=== PATIENT | female | born 2000 | race Caucasian/White ===

== ENCOUNTER 2021-01-25 22:24 | Inpatient (IN) ==
[2021-01-25 22:51] LABS: INR 1.3; Prothrombin Time 15.1 Seconds (9.4-12.1)
[2021-01-25 22:54] LABS: Activated Partial Thrombo Time 27.4 Seconds (26.0-36.0)
[2021-01-25 22:58] LABS: Hematocrit 41.4 % (35.3-44.9); Hemoglobin 14.2 g/dL (11.5-15.4); Lymphocytes # 0.7 K/mcL (0.6-4.6); Mean Corpuscular HGB Conc 34.3 g/dL (31.6-35.5); Mean Corpuscular Hemoglobin 30.5 pg (28.0-33.3); Mean Platelet Volume 10.7 fL (9.4-12.4); Platelet Count 129 K/mcL (140-400); Red Blood Count 4.65 M/mcL (3.82-4.97); Red Cell Distribution Width 12.8 % (11.5-14.5)
[2021-01-25 23:14] LABS: Alanine Aminotransferase 22 Units/L (7-52); Albumin 3.6 g/dL (3.5-5.7); Albumin/Globulin Ratio 1.1 (1.1-2.2); Alkaline Phosphatase 42 Units/L (34-104); Aspartate Amino Transferase 48 Units/L (13-39); BUN/Creatinine Ratio 14 (6-26); Bilirubin,Direct 0.2 mg/dL (0.0-0.2); Bilirubin,Indirect 0.3 mg/dL (0.0-1.0); Bilirubin,Total 0.5 mg/dL (0.3-1.0); Blood Urea Nitrogen 12 mg/dL (6-20); Calcium 8.4 mg/dL (8.6-10.3); Carbon Dioxide 23 mEq/L (23-29); Chloride 106 mEq/L (98-107); Globulin 3.3 g/dL (2.4-3.5); Glucose 99 mg/dL (70-105); Lipase 8 Units/L (11-82); Osmolality,Calculated 288 (280-300); Phosphorous 2.8 mg/dL (2.7-4.5); Potassium 3.6 mEq/L (3.5-5.1); Sodium 139 mEq/L (136-145); Total Protein 6.9 g/dL (6.4-8.9); eGFR For African Americans > 60 (> 60); eGFR For Non-African Americans > 60 (> 60)
[2021-01-25 23:15] LABS: Troponin I < 0.03 ng/mL (< 0.04)
[2021-01-25 23:16] LABS: Anisocytosis 2+ (Not Present); Monocytes # 0.1 K/mcL (0.0-1.3); Neutrophils # 4.2 K/mcL (1.6-8.9); Reactive Lymphocytes Present (Not Present)
[2021-01-25 23:17] LABS: Platelet Estimate Slight Decrease (Normal)
[2021-01-25] MEDS ORDERED: Ketorolac 15 MG/ML VIAL IVP ONE (23:44)
[2021-01-26] MEDS ORDERED: Naloxone 0.4 MG/ML INJ IVP PRN (00:21)
[2021-01-26 00:45] LABS: Influenza A PCR Negative (Negative); Influenza B PCR Negative (Negative); Resp. Syncytial Virus PCR Negative (Negative)
[2021-01-26 00:50] LABS: SARS-CoV-2 by PCR (In House) Positive (Negative)
[2021-01-26] MEDS ORDERED: Remdesivir 200 MG in 0.9 % Sodium Chloride 100 ML IVPB ONE (01:36)
[2021-01-26 02:48] LABS: Hematocrit 40.7 % (35.3-44.9); Hemoglobin 13.7 g/dL (11.5-15.4); Immature Granulocytes % 0.7 % (0-4); Lymphocytes # 0.3 K/mcL (0.6-4.6); Lymphocytes % 8.1 %; Mean Corpuscular HGB Conc 33.7 g/dL (31.6-35.5); Mean Corpuscular Hemoglobin 30.1 pg (28.0-33.3); Mean Corpuscular Volume 89.5 fL (83.0-100.0); Mean Platelet Volume 10.6 fL (9.4-12.4); Monocytes # 0.1 K/mcL (0.0-1.3); Monocytes % 1.5 %; Nucleated Red Blood Cells 0.5 /100 WBC (0); Platelet Count 138 K/mcL (140-400); Red Blood Count 4.55 M/mcL (3.82-4.97); Red Cell Distribution Width 12.8 % (11.5-14.5); Segmented Neutrophils % 89.7 %; White Blood Count 4.1 K/mcL (4.3-11.1)
[2021-01-26 02:50] LABS: Neutrophils # 3.7 K/mcL (1.6-8.9)
[2021-01-26 03:09] LABS: Alanine Aminotransferase 22 Units/L (7-52); Albumin 3.7 g/dL (3.5-5.7); Albumin/Globulin Ratio 1.1 (1.1-2.2); Alkaline Phosphatase 40 Units/L (34-104); Aspartate Amino Transferase 44 Units/L (13-39); BUN/Creatinine Ratio 19 (6-26); Bilirubin,Direct 0.2 mg/dL (0.0-0.2); Bilirubin,Indirect 0.3 mg/dL (0.0-1.0); Bilirubin,Total 0.5 mg/dL (0.3-1.0); Blood Urea Nitrogen 15 mg/dL (6-20); Calcium 8.5 mg/dL (8.6-10.3); Carbon Dioxide 20 mEq/L (23-29); Chloride 107 mEq/L (98-107); Globulin 3.4 g/dL (2.4-3.5); Glucose 125 mg/dL (70-105); Osmolality,Calculated 288 (280-300); Potassium 3.6 mEq/L (3.5-5.1); Sodium 138 mEq/L (136-145); Total Protein 7.1 g/dL (6.4-8.9); eGFR For African Americans > 60 (> 60); eGFR For Non-African Americans > 60 (> 60)
[2021-01-26] MEDS: Ipratropium 1 PUFF INHALER IH SCH ×6 (03:34→23:05)
[2021-01-26 03:46] LABS: Anisocytosis 1+ (Not Present); Platelet Estimate Slight Decrease (Normal); Reactive Lymphocytes Present (Not Present); Toxic Granulation Present (Not Present)
[2021-01-26] MEDS ORDERED: Isovue-370 500 ML BOTTLE IVP ONE (03:50)
[2021-01-26] MEDS ORDERED: cefTRIAXone 2,000 MG in Water for inj. (sterile) 20 ML IVP SCH (04:00)
[2021-01-26] MEDS: *HR* Enoxaparin 40 MG/0.4 ML SYRINGE SQ SCH (05:28)
[2021-01-26] MEDS ORDERED: Doxycycline 100 MG in 0.9 % Sodium Chloride Mini Bag 100 ML IVPB SCH (06:00)
[2021-01-26 10:54] LABS: C-Reactive Protein 271 mg/L (Less than 10)
[2021-01-26] MEDS: Acetaminophen 325 MG TABLET PO PRN (13:56)
[2021-01-26 15:18] LABS: Bacteria,Urine Few per hpf (None-Few); Bilirubin,Urine Negative (Negative); Blood,Urine Moderate (Negative); Clarity,Urine Clear (Clear); Color,Urine Yellow (Yellow); Glucose,Urine (UA) Normal (Normal); Ketones,Urine 20 mg/dL (Negative); Leukocyte Esterase,Urine Negative (Negative); Mucus,Urine Few per lpf (None-Few); Nitrite,Urine Negative (Negative); Protein,Urine 30 mg/dL (Neg-Trace); RBC,Urine 0-3 per hpf (0-3); Specific Gravity,Urine > 1.030 (1.010-1.025); Squamous Epithelial Cell,Urine Few per hpf (None-Few); Urobilinogen,Urine Normal (Normal); WBC,Urine 0-3 per hpf (0-3)
[2021-01-26] MEDS: QUEtiapine Fumarate 25 MG TABLET PO SCH (20:52)
[2021-01-27] MEDS: Remdesivir 100 MG in 0.9 % Sodium Chloride 100 ML IVPB SCH (01:21)
[2021-01-27] MEDS: Ipratropium 1 PUFF INHALER IH SCH ×6 (03:48→23:59)
[2021-01-27] MEDS: *HR* Enoxaparin 40 MG/0.4 ML SYRINGE SQ SCH (05:06)
[2021-01-27 06:30] LABS: Alanine Aminotransferase 16 Units/L (7-52); Albumin 3.4 g/dL (3.5-5.7); Albumin/Globulin Ratio 1.1 (1.1-2.2); Alkaline Phosphatase 38 Units/L (34-104); Aspartate Amino Transferase 24 Units/L (13-39); BUN/Creatinine Ratio 26 (6-26); Bilirubin,Direct 0.1 mg/dL (0.0-0.2); Bilirubin,Indirect 0.3 mg/dL (0.0-1.0); Bilirubin,Total 0.4 mg/dL (0.3-1.0); Blood Urea Nitrogen 18 mg/dL (6-20); Calcium 8.6 mg/dL (8.6-10.3); Carbon Dioxide 25 mEq/L (23-29); Chloride 109 mEq/L (98-107); Globulin 3.1 g/dL (2.4-3.5); Glucose 116 mg/dL (70-105); Osmolality,Calculated 299 (280-300); Potassium 3.6 mEq/L (3.5-5.1); Sodium 143 mEq/L (136-145); Total Protein 6.5 g/dL (6.4-8.9); eGFR For African Americans > 60 (> 60); eGFR For Non-African Americans > 60 (> 60)
[2021-01-27 07:05] LABS: Hematocrit 37.1 % (35.3-44.9); Hemoglobin 12.5 g/dL (11.5-15.4); Mean Corpuscular HGB Conc 33.7 g/dL (31.6-35.5); Mean Corpuscular Hemoglobin 30.6 pg (28.0-33.3); Mean Corpuscular Volume 90.7 fL (83.0-100.0); Mean Platelet Volume 10.5 fL (9.4-12.4); Platelet Count 178 K/mcL (140-400); Red Blood Count 4.09 M/mcL (3.82-4.97); Red Cell Distribution Width 12.9 % (11.5-14.5); White Blood Count 3.9 K/mcL (4.3-11.1)
[2021-01-27 09:35] LABS: Lymphocytes # 1.2 K/mcL (0.6-4.6); Monocytes # 0.1 K/mcL (0.0-1.3); Neutrophils # 2.7 K/mcL (1.6-8.9); Platelet Estimate Normal (Normal)
[2021-01-27 09:36] LABS: Reactive Lymphocytes Present (Not Present)
[2021-01-27] MEDS: FLUoxetine 20 MG CAPSULE PO SCH (10:38)
[2021-01-27] MEDS: Benzonatate 100 MG CAPSULE PO PRN (17:32)
[2021-01-27] MEDS: QUEtiapine Fumarate 25 MG TABLET PO SCH (21:07)
[2021-01-28] MEDS: Remdesivir 100 MG in 0.9 % Sodium Chloride 100 ML IVPB SCH (01:48)
[2021-01-28] MEDS: Ipratropium 1 PUFF INHALER IH SCH ×6 (04:00→23:36)
[2021-01-28] MEDS: *HR* Enoxaparin 40 MG/0.4 ML SYRINGE SQ SCH (05:55)
[2021-01-28 06:08] LABS: Basophils % 0.2 %; Hematocrit 38.4 % (35.3-44.9); Hemoglobin 12.9 g/dL (11.5-15.4); Immature Granulocytes % 0.5 % (0-4); Lymphocytes # 1.1 K/mcL (0.6-4.6); Lymphocytes % 26.2 %; Mean Corpuscular HGB Conc 33.6 g/dL (31.6-35.5); Mean Corpuscular Hemoglobin 31.1 pg (28.0-33.3); Mean Corpuscular Volume 92.5 fL (83.0-100.0); Mean Platelet Volume 10.6 fL (9.4-12.4); Monocytes # 0.4 K/mcL (0.0-1.3); Monocytes % 9.2 %; Neutrophils # 2.6 K/mcL (1.6-8.9); Platelet Count 183 K/mcL (140-400); Red Blood Count 4.15 M/mcL (3.82-4.97); Red Cell Distribution Width 12.7 % (11.5-14.5); Segmented Neutrophils % 63.9 %; White Blood Count 4.1 K/mcL (4.3-11.1)
[2021-01-28 06:31] LABS: Alanine Aminotransferase 14 Units/L (7-52); Albumin 3.4 g/dL (3.5-5.7); Albumin/Globulin Ratio 1.2 (1.1-2.2); Alkaline Phosphatase 39 Units/L (34-104); Aspartate Amino Transferase 23 Units/L (13-39); BUN/Creatinine Ratio 28 (6-26); Bilirubin,Direct 0.1 mg/dL (0.0-0.2); Bilirubin,Indirect 0.3 mg/dL (0.0-1.0); Bilirubin,Total 0.4 mg/dL (0.3-1.0); Blood Urea Nitrogen 20 mg/dL (6-20); Calcium 8.7 mg/dL (8.6-10.3); Carbon Dioxide 26 mEq/L (23-29); Chloride 110 mEq/L (98-107); Globulin 2.9 g/dL (2.4-3.5); Glucose 97 mg/dL (70-105); Osmolality,Calculated 301 (280-300); Platelet Estimate Normal (Normal); Poikilocytosis 1+ (Not Present); Potassium 3.9 mEq/L (3.5-5.1); Reactive Lymphocytes Present (Not Present); Sodium 144 mEq/L (136-145); Total Protein 6.3 g/dL (6.4-8.9); eGFR For African Americans > 60 (> 60); eGFR For Non-African Americans > 60 (> 60)
[2021-01-28] MEDS: FLUoxetine 20 MG CAPSULE PO SCH (07:59)
[2021-01-28] MEDS: Ondansetron 4 MG/2 ML VIAL IVP PRN (08:14)
[2021-01-28] MEDS ORDERED: *HR* LORazepam 0.5 MG TABLET PO PRN (20:57)
[2021-01-28] MEDS: QUEtiapine Fumarate 25 MG TABLET PO SCH (21:28)
[2021-01-28] MEDS: Acetaminophen 325 MG TABLET PO PRN (21:28)
[2021-01-28] MEDS: Benzonatate 100 MG CAPSULE PO PRN (21:28)
[2021-01-29] MEDS: Remdesivir 100 MG in 0.9 % Sodium Chloride 100 ML IVPB SCH (01:31)
[2021-01-29] MEDS: Ipratropium 1 PUFF INHALER IH SCH ×6 (04:11→23:47)
[2021-01-29] MEDS: *HR* Enoxaparin 40 MG/0.4 ML SYRINGE SQ SCH (05:32)
[2021-01-29] MEDS: FLUoxetine 20 MG CAPSULE PO SCH (08:14)
[2021-01-29] MEDS ORDERED: Furosemide 40 MG/4 ML VIAL IVP ONE (09:05)
[2021-01-29] MEDS: *HR* LORazepam 2 MG/ML VIAL IVP PRN ×2 (11:34→20:08)
[2021-01-29] MEDS: QUEtiapine Fumarate 25 MG TABLET PO SCH (20:13)
[2021-01-29] MEDS: Ondansetron 4 MG/2 ML VIAL IVP PRN (23:08)
[2021-01-30] MEDS ORDERED: Morphine Sulfate 2 MG/ML SYRINGE IVP ONE (01:10)
[2021-01-30] MEDS: *HR* LORazepam 2 MG/ML VIAL IVP PRN ×2 (01:11→18:50)
[2021-01-30] MEDS: Remdesivir 100 MG in 0.9 % Sodium Chloride 100 ML IVPB SCH (02:32)
[2021-01-30] MEDS: Ipratropium 1 PUFF INHALER IH SCH ×5 (04:48→20:56)
[2021-01-30] MEDS: *HR* Enoxaparin 40 MG/0.4 ML SYRINGE SQ SCH (05:03)
[2021-01-30 06:55] LABS: Basophils % 0.4 %; Eosinophils % 0.6 %; Hematocrit 41.7 % (35.3-44.9); Hemoglobin 13.9 g/dL (11.5-15.4); Lymphocytes # 1.2 K/mcL (0.6-4.6); Lymphocytes % 24.4 %; Mean Corpuscular HGB Conc 33.3 g/dL (31.6-35.5); Mean Corpuscular Hemoglobin 30.3 pg (28.0-33.3); Mean Corpuscular Volume 90.8 fL (83.0-100.0); Mean Platelet Volume 10.2 fL (9.4-12.4); Monocytes # 0.4 K/mcL (0.0-1.3); Monocytes % 8.6 %; Neutrophils # 3.3 K/mcL (1.6-8.9); Platelet Count 228 K/mcL (140-400); Red Blood Count 4.59 M/mcL (3.82-4.97); Red Cell Distribution Width 12.5 % (11.5-14.5)
[2021-01-30 07:15] LABS: Alanine Aminotransferase 24 Units/L (7-52); Albumin 3.9 g/dL (3.5-5.7); Albumin/Globulin Ratio 1.3 (1.1-2.2); Alkaline Phosphatase 40 Units/L (34-104); Aspartate Amino Transferase 24 Units/L (13-39); BUN/Creatinine Ratio 35 (6-26); Bilirubin,Total 0.6 mg/dL (0.3-1.0); Blood Urea Nitrogen 24 mg/dL (6-20); Carbon Dioxide 27 mEq/L (23-29); Chloride 104 mEq/L (98-107); Globulin 2.9 g/dL (2.4-3.5); Glucose 94 mg/dL (70-105); Osmolality,Calculated 296 (280-300); Potassium 3.8 mEq/L (3.5-5.1); Sodium 141 mEq/L (136-145); Total Protein 6.8 g/dL (6.4-8.9); eGFR For African Americans > 60 (> 60); eGFR For Non-African Americans > 60 (> 60)
[2021-01-30 09:14] LABS: Calcium 9.2 mg/dL (8.6-10.3)
[2021-01-30] MEDS: Acetaminophen 325 MG TABLET PO PRN (10:29)
[2021-01-30] MEDS: Benzonatate 100 MG CAPSULE PO PRN (10:29)
[2021-01-30] MEDS: FLUoxetine 20 MG CAPSULE PO SCH (10:30)
[2021-01-30] MEDS ORDERED: *HR* LORazepam 2 MG/ML VIAL IVP ONE (18:51)
[2021-01-30] MEDS: QUEtiapine Fumarate 25 MG TABLET PO SCH (20:29)
[2021-01-31] MEDS: Ipratropium 1 PUFF INHALER IH SCH ×6 (00:20→20:43)
[2021-01-31] MEDS: *HR* Enoxaparin 40 MG/0.4 ML SYRINGE SQ SCH (04:58)
[2021-01-31 07:52] LABS: Basophils % 0.2 %; Eosinophils # 0.1 K/mcL (0.0-0.6); Eosinophils % 1.2 %; Hematocrit 42.5 % (35.3-44.9); Hemoglobin 14.3 g/dL (11.5-15.4); Immature Granulocytes % 0.8 % (0-4); Lymphocytes # 1.1 K/mcL (0.6-4.6); Lymphocytes % 13.3 %; Mean Corpuscular HGB Conc 33.6 g/dL (31.6-35.5); Mean Platelet Volume 10.4 fL (9.4-12.4); Monocytes # 0.7 K/mcL (0.0-1.3); Monocytes % 7.9 %; Platelet Count 217 K/mcL (140-400); Red Blood Count 4.62 M/mcL (3.82-4.97); Red Cell Distribution Width 12.2 % (11.5-14.5); Segmented Neutrophils % 76.6 %
[2021-01-31 07:54] LABS: Neutrophils # 6.4 K/mcL (1.6-8.9); White Blood Count 8.3 K/mcL (4.3-11.1)
[2021-01-31] MEDS: FLUoxetine 20 MG CAPSULE PO SCH (09:58)
[2021-01-31] MEDS ORDERED: Furosemide 20 MG/2 ML VIAL IVP ONE (15:34)
[2021-01-31] MEDS: QUEtiapine Fumarate 25 MG TABLET PO SCH (20:03)
[2021-01-31] MEDS: *HR* LORazepam 2 MG/ML VIAL IVP PRN (23:33)
[2021-02-01] MEDS: Ipratropium 1 PUFF INHALER IH SCH ×6 (00:07→20:18)
[2021-02-01] MEDS: *HR* Enoxaparin 40 MG/0.4 ML SYRINGE SQ SCH (05:54)
[2021-02-01] MEDS: Benzonatate 100 MG CAPSULE PO PRN (09:12)
[2021-02-01] MEDS: FLUoxetine 20 MG CAPSULE PO SCH (09:12)
[2021-02-01] MEDS: Ondansetron 4 MG/2 ML VIAL IVP PRN (09:33)
[2021-02-01] MEDS: *HR* LORazepam 2 MG/ML VIAL IVP PRN ×2 (09:33→22:03)
[2021-02-01] MEDS: Acetaminophen 325 MG TABLET PO PRN (09:33)
[2021-02-01] MEDS: QUEtiapine Fumarate 25 MG TABLET PO SCH (21:51)
[2021-02-02] MEDS: Ipratropium 1 PUFF INHALER IH SCH ×7 (00:40→23:19)
[2021-02-02] MEDS: Acetaminophen 325 MG TABLET PO PRN ×3 (01:23→16:14)
[2021-02-02 03:50] LABS: Basophils % 0.2 %; Eosinophils # 0.1 K/mcL (0.0-0.6); Eosinophils % 1.2 %; Hematocrit 42.4 % (35.3-44.9); Hemoglobin 14.8 g/dL (11.5-15.4); Immature Granulocytes % 0.8 % (0-4); Lymphocytes # 0.9 K/mcL (0.6-4.6); Lymphocytes % 9.3 %; Mean Corpuscular HGB Conc 34.9 g/dL (31.6-35.5); Mean Corpuscular Hemoglobin 31.1 pg (28.0-33.3); Mean Corpuscular Volume 89.1 fL (83.0-100.0); Mean Platelet Volume 10.4 fL (9.4-12.4); Monocytes # 0.6 K/mcL (0.0-1.3); Monocytes % 6.3 %; Platelet Count 250 K/mcL (140-400); Red Blood Count 4.76 M/mcL (3.82-4.97); Red Cell Distribution Width 12.2 % (11.5-14.5); Segmented Neutrophils % 82.2 %; White Blood Count 9.7 K/mcL (4.3-11.1)
[2021-02-02 04:08] LABS: Alanine Aminotransferase 22 Units/L (7-52); Albumin 3.9 g/dL (3.5-5.7); Albumin/Globulin Ratio 1.5 (1.1-2.2); Alkaline Phosphatase 39 Units/L (34-104); Aspartate Amino Transferase 21 Units/L (13-39); BUN/Creatinine Ratio 25 (6-26); Bilirubin,Total 0.9 mg/dL (0.3-1.0); Blood Urea Nitrogen 18 mg/dL (6-20); Calcium 9.3 mg/dL (8.6-10.3); Carbon Dioxide 27 mEq/L (23-29); Chloride 102 mEq/L (98-107); Globulin 2.6 g/dL (2.4-3.5); Glucose 104 mg/dL (70-105); Osmolality,Calculated 288 (280-300); Potassium 3.7 mEq/L (3.5-5.1); Sodium 138 mEq/L (136-145); Total Protein 6.5 g/dL (6.4-8.9); eGFR For African Americans > 60 (> 60); eGFR For Non-African Americans > 60 (> 60)
[2021-02-02] MEDS: *HR* Enoxaparin 40 MG/0.4 ML SYRINGE SQ SCH (06:45)
[2021-02-02] MEDS: Benzonatate 100 MG CAPSULE PO PRN ×3 (08:44→21:22)
[2021-02-02] MEDS: FLUoxetine 20 MG CAPSULE PO SCH (08:44)
[2021-02-02] MEDS: Furosemide 40 MG TABLET PO SCH (16:14)
[2021-02-02] MEDS: QUEtiapine Fumarate 25 MG TABLET PO SCH (20:00)
[2021-02-02] MEDS: *HR* LORazepam 2 MG/ML VIAL IVP PRN (21:22)
[2021-02-03] MEDS: Ipratropium 1 PUFF INHALER IH SCH ×6 (04:00→23:12)
[2021-02-03] MEDS: *HR* Enoxaparin 40 MG/0.4 ML SYRINGE SQ SCH (05:19)
[2021-02-03] MEDS: Benzonatate 100 MG CAPSULE PO PRN ×2 (05:20→20:52)
[2021-02-03] MEDS: Acetaminophen 325 MG TABLET PO PRN ×2 (05:20→20:53)
[2021-02-03] MEDS: Furosemide 40 MG TABLET PO SCH (08:06)
[2021-02-03] MEDS: FLUoxetine 20 MG CAPSULE PO SCH (08:06)
[2021-02-03] MEDS: *HR* LORazepam 2 MG/ML VIAL IVP PRN ×2 (08:07→20:53)
[2021-02-03 11:07] LABS: Alanine Aminotransferase 18 Units/L (7-52); Albumin 3.6 g/dL (3.5-5.7); Albumin/Globulin Ratio 1.3 (1.1-2.2); Alkaline Phosphatase 39 Units/L (34-104); Aspartate Amino Transferase 25 Units/L (13-39); BUN/Creatinine Ratio 19 (6-26); Bilirubin,Total 0.8 mg/dL (0.3-1.0); Blood Urea Nitrogen 15 mg/dL (6-20); Calcium 8.8 mg/dL (8.6-10.3); Carbon Dioxide 25 mEq/L (23-29); Chloride 102 mEq/L (98-107); Globulin 2.7 g/dL (2.4-3.5); Glucose 105 mg/dL (70-105); Osmolality,Calculated 285 (280-300); Potassium 3.8 mEq/L (3.5-5.1); Sodium 137 mEq/L (136-145); Total Protein 6.3 g/dL (6.4-8.9); eGFR For African Americans > 60 (> 60); eGFR For Non-African Americans > 60 (> 60)
[2021-02-03 11:37] LABS: Basophils % 0.3 %; Eosinophils # 0.2 K/mcL (0.0-0.6); Eosinophils % 1.9 %; Hematocrit 43.1 % (35.3-44.9); Immature Granulocytes % 2.1 % (0-4); Immature Platelets 7.9 % (1.1-6.1); Lymphocytes # 0.9 K/mcL (0.6-4.6); Lymphocytes % 7.4 %; Mean Corpuscular HGB Conc 34.8 g/dL (31.6-35.5); Mean Platelet Volume 11.6 fL (9.4-12.4); Monocytes # 0.4 K/mcL (0.0-1.3); Monocytes % 3.6 %; Neutrophils # 10.3 K/mcL (1.6-8.9); Platelet Count 160 K/mcL (140-400); Red Blood Count 4.84 M/mcL (3.82-4.97); Red Cell Distribution Width 12.5 % (11.5-14.5); Segmented Neutrophils % 84.7 %; White Blood Count 12.2 K/mcL (4.3-11.1)
[2021-02-03 12:05] LABS: Platelet Estimate Normal (Normal)
[2021-02-03 12:07] LABS: Anisocytosis 1+ (Not Present)
[2021-02-03] MEDS ORDERED: Chloraseptic Spray 177 ML BOTTLE MM PRN (20:44)
[2021-02-03] MEDS: QUEtiapine Fumarate 25 MG TABLET PO SCH (20:52)
[2021-02-04] MEDS: Ipratropium 1 PUFF INHALER IH SCH ×5 (04:21→19:57)
[2021-02-04] MEDS: *HR* Enoxaparin 40 MG/0.4 ML SYRINGE SQ SCH (05:32)
[2021-02-04] MEDS: Benzonatate 100 MG CAPSULE PO PRN ×3 (05:32→22:41)
[2021-02-04] MEDS: Acetaminophen 325 MG TABLET PO PRN ×2 (05:33→15:15)
[2021-02-04 06:41] LABS: Basophils % 0.2 %; Eosinophils # 0.3 K/mcL (0.0-0.6); Eosinophils % 2.8 %; Hematocrit 39.2 % (35.3-44.9); Hemoglobin 13.4 g/dL (11.5-15.4); Immature Granulocytes % 1.3 % (0-4); Lymphocytes # 1.4 K/mcL (0.6-4.6); Lymphocytes % 14.1 %; Mean Corpuscular HGB Conc 34.2 g/dL (31.6-35.5); Mean Corpuscular Hemoglobin 30.9 pg (28.0-33.3); Mean Corpuscular Volume 90.3 fL (83.0-100.0); Mean Platelet Volume 10.8 fL (9.4-12.4); Monocytes # 0.6 K/mcL (0.0-1.3); Monocytes % 5.9 %; Neutrophils # 7.3 K/mcL (1.6-8.9); Platelet Count 189 K/mcL (140-400); Red Blood Count 4.34 M/mcL (3.82-4.97); Red Cell Distribution Width 12.6 % (11.5-14.5); Segmented Neutrophils % 75.7 %; White Blood Count 9.7 K/mcL (4.3-11.1)
[2021-02-04 07:02] LABS: Alanine Aminotransferase 15 Units/L (7-52); Albumin 3.5 g/dL (3.5-5.7); Albumin/Globulin Ratio 1.5 (1.1-2.2); Alkaline Phosphatase 38 Units/L (34-104); Aspartate Amino Transferase 18 Units/L (13-39); BUN/Creatinine Ratio 22 (6-26); Bilirubin,Total 0.6 mg/dL (0.3-1.0); Blood Urea Nitrogen 17 mg/dL (6-20); Calcium 8.8 mg/dL (8.6-10.3); Carbon Dioxide 26 mEq/L (23-29); Chloride 102 mEq/L (98-107); Globulin 2.3 g/dL (2.4-3.5); Glucose 100 mg/dL (70-105); Osmolality,Calculated 284 (280-300); Potassium 3.6 mEq/L (3.5-5.1); Sodium 136 mEq/L (136-145); Total Protein 5.8 g/dL (6.4-8.9); eGFR For African Americans > 60 (> 60); eGFR For Non-African Americans > 60 (> 60)
[2021-02-04 07:20] LABS: Ferritin 250 ng/mL (10-120)
[2021-02-04] MEDS: FLUoxetine 20 MG CAPSULE PO SCH (08:13)
[2021-02-04] MEDS: Furosemide 40 MG TABLET PO SCH (08:13)
[2021-02-04 11:42] LABS: C-Reactive Protein < 5 mg/L (Less than 10)
[2021-02-04] MEDS: *HR* LORazepam 2 MG/ML VIAL IVP PRN (21:11)
[2021-02-04] MEDS: QUEtiapine Fumarate 25 MG TABLET PO SCH (21:11)
[2021-02-04] MEDS: GuaiFENesin Liq 200 MG/10 ML UDC PO PRN (21:11)
[2021-02-04] MEDS ORDERED: *HR* LORazepam 2 MG/ML VIAL IVP ONE (23:07)
[2021-02-05] MEDS: Ipratropium 1 PUFF INHALER IH SCH ×7 (00:12→23:43)
[2021-02-05] MEDS: GuaiFENesin Liq 200 MG/10 ML UDC PO PRN ×3 (03:10→20:03)
[2021-02-05] MEDS: Acetaminophen 325 MG TABLET PO PRN (03:17)
[2021-02-05] MEDS: *HR* Enoxaparin 40 MG/0.4 ML SYRINGE SQ SCH (05:32)
[2021-02-05 07:25] LABS: Basophils # 0.1 K/mcL (0.0-0.2); Basophils % 0.4 %; Eosinophils # 0.2 K/mcL (0.0-0.6); Eosinophils % 1.9 %; Hematocrit 40.6 % (35.3-44.9); Immature Granulocytes % 1.7 % (0-4); Lymphocytes # 1.6 K/mcL (0.6-4.6); Lymphocytes % 13.5 %; Mean Corpuscular HGB Conc 34.5 g/dL (31.6-35.5); Mean Corpuscular Hemoglobin 30.6 pg (28.0-33.3); Mean Corpuscular Volume 88.6 fL (83.0-100.0); Mean Platelet Volume 10.4 fL (9.4-12.4); Monocytes # 0.8 K/mcL (0.0-1.3); Monocytes % 6.9 %; Platelet Count 186 K/mcL (140-400); Red Blood Count 4.58 M/mcL (3.82-4.97); Red Cell Distribution Width 12.8 % (11.5-14.5); Segmented Neutrophils % 75.6 %; White Blood Count 11.9 K/mcL (4.3-11.1)
[2021-02-05 07:50] LABS: BUN/Creatinine Ratio 18 (6-26); Blood Urea Nitrogen 14 mg/dL (6-20); Calcium 9.1 mg/dL (8.6-10.3); Carbon Dioxide 26 mEq/L (23-29); Chloride 104 mEq/L (98-107); Glucose 91 mg/dL (70-105); Osmolality,Calculated 288 (280-300); Potassium 3.7 mEq/L (3.5-5.1); Sodium 139 mEq/L (136-145); eGFR For African Americans > 60 (> 60); eGFR For Non-African Americans > 60 (> 60)
[2021-02-05] MEDS: FLUoxetine 20 MG CAPSULE PO SCH (08:26)
[2021-02-05] MEDS: Furosemide 40 MG TABLET PO SCH (13:23)
[2021-02-05] MEDS: QUEtiapine Fumarate 25 MG TABLET PO SCH (21:55)
[2021-02-05] MEDS: *HR* LORazepam 2 MG/ML VIAL IVP PRN (21:58)
[2021-02-06 02:08] LABS: Basophils % 0.2 %; Eosinophils # 0.1 K/mcL (0.0-0.6); Eosinophils % 0.7 %; Hematocrit 38.8 % (35.3-44.9); Hemoglobin 13.6 g/dL (11.5-15.4); Immature Granulocytes % 1.2 % (0-4); Lymphocytes % 8.3 %; Mean Corpuscular HGB Conc 35.1 g/dL (31.6-35.5); Mean Corpuscular Hemoglobin 31.3 pg (28.0-33.3); Mean Corpuscular Volume 89.4 fL (83.0-100.0); Monocytes # 0.7 K/mcL (0.0-1.3); Monocytes % 5.6 %; Neutrophils # 10.3 K/mcL (1.6-8.9); Platelet Count 181 K/mcL (140-400); Red Blood Count 4.34 M/mcL (3.82-4.97); Red Cell Distribution Width 12.7 % (11.5-14.5); White Blood Count 12.2 K/mcL (4.3-11.1)
[2021-02-06 02:29] LABS: BUN/Creatinine Ratio 18 (6-26); Blood Urea Nitrogen 12 mg/dL (6-20); Carbon Dioxide 23 mEq/L (23-29); Chloride 106 mEq/L (98-107); Glucose 135 mg/dL (70-105); Osmolality,Calculated 290 (280-300); Potassium 3.4 mEq/L (3.5-5.1); Sodium 139 mEq/L (136-145); eGFR For African Americans > 60 (> 60); eGFR For Non-African Americans > 60 (> 60)
[2021-02-06] MEDS: Ipratropium 1 PUFF INHALER IH SCH ×6 (04:11→23:24)
[2021-02-06] MEDS: GuaiFENesin Liq 200 MG/10 ML UDC PO PRN ×3 (05:36→21:52)
[2021-02-06] MEDS: *HR* Enoxaparin 40 MG/0.4 ML SYRINGE SQ SCH (05:36)
[2021-02-06] MEDS: FLUoxetine 20 MG CAPSULE PO SCH (08:35)
[2021-02-06] MEDS: Furosemide 40 MG TABLET PO SCH (08:35)
[2021-02-06] MEDS: *HR* LORazepam 2 MG/ML VIAL IVP PRN ×2 (15:37→21:53)
[2021-02-06] MEDS: QUEtiapine Fumarate 25 MG TABLET PO SCH (21:52)
[2021-02-07] MEDS: GuaiFENesin Liq 200 MG/10 ML UDC PO PRN ×3 (04:15→20:19)
[2021-02-07] MEDS: Ipratropium 1 PUFF INHALER IH SCH ×6 (04:39→23:26)
[2021-02-07] MEDS: *HR* Enoxaparin 40 MG/0.4 ML SYRINGE SQ SCH (05:06)
[2021-02-07 06:55] LABS: BUN/Creatinine Ratio 27 (6-26); Blood Urea Nitrogen 20 mg/dL (6-20); Carbon Dioxide 26 mEq/L (23-29); Chloride 107 mEq/L (98-107); Glucose 96 mg/dL (70-105); Osmolality,Calculated 292 (280-300); Potassium 3.7 mEq/L (3.5-5.1); Sodium 140 mEq/L (136-145); eGFR For African Americans > 60 (> 60); eGFR For Non-African Americans > 60 (> 60)
[2021-02-07] MEDS: Furosemide 40 MG TABLET PO SCH (08:02)
[2021-02-07] MEDS: FLUoxetine 20 MG CAPSULE PO SCH (08:02)
[2021-02-07 12:14] LABS: Basophils # 0.1 K/mcL (0.0-0.2); Basophils % 0.5 %; Eosinophils # 0.1 K/mcL (0.0-0.6); Eosinophils % 0.9 %; Hematocrit 39.3 % (35.3-44.9); Hemoglobin 13.2 g/dL (11.5-15.4); Lymphocytes # 1.9 K/mcL (0.6-4.6); Mean Corpuscular HGB Conc 33.6 g/dL (31.6-35.5); Mean Corpuscular Hemoglobin 30.6 pg (28.0-33.3); Mean Corpuscular Volume 91.2 fL (83.0-100.0); Mean Platelet Volume 11.7 fL (9.4-12.4); Monocytes # 1.1 K/mcL (0.0-1.3); Monocytes % 8.4 %; Neutrophils # 9.2 K/mcL (1.6-8.9); Platelet Count 179 K/mcL (140-400); Red Blood Count 4.31 M/mcL (3.82-4.97); Red Cell Distribution Width 13.1 % (11.5-14.5); Segmented Neutrophils % 73.2 %; White Blood Count 12.6 K/mcL (4.3-11.1)
[2021-02-07] MEDS ORDERED: Acetaminophen 325 MG TABLET PO PRN (15:06)
[2021-02-07] MEDS: Benzonatate 100 MG CAPSULE PO PRN ×2 (15:33→20:21)
[2021-02-07] MEDS: QUEtiapine Fumarate 25 MG TABLET PO SCH (20:30)
[2021-02-08] MEDS: Ipratropium 1 PUFF INHALER IH SCH ×6 (04:12→23:37)
[2021-02-08] MEDS: Benzonatate 100 MG CAPSULE PO PRN ×2 (04:25→16:36)
[2021-02-08] MEDS: GuaiFENesin Liq 200 MG/10 ML UDC PO PRN (04:25)
[2021-02-08] MEDS: *HR* Enoxaparin 40 MG/0.4 ML SYRINGE SQ SCH (04:33)
[2021-02-08] MEDS: *HR* LORazepam 2 MG/ML VIAL IVP PRN (04:52)
[2021-02-08 06:20] LABS: Basophils % 0.3 %; Eosinophils # 0.2 K/mcL (0.0-0.6); Eosinophils % 1.4 %; Hematocrit 39.9 % (35.3-44.9); Hemoglobin 13.8 g/dL (11.5-15.4); Immature Granulocytes % 1.7 % (0-4); Lymphocytes # 2.5 K/mcL (0.6-4.6); Lymphocytes % 19.6 %; Mean Corpuscular HGB Conc 34.6 g/dL (31.6-35.5); Mean Corpuscular Hemoglobin 31.4 pg (28.0-33.3); Mean Corpuscular Volume 90.9 fL (83.0-100.0); Mean Platelet Volume 10.8 fL (9.4-12.4); Monocytes # 1.1 K/mcL (0.0-1.3); Monocytes % 8.7 %; Neutrophils # 8.6 K/mcL (1.6-8.9); Platelet Count 173 K/mcL (140-400); Red Blood Count 4.39 M/mcL (3.82-4.97); Red Cell Distribution Width 13.2 % (11.5-14.5); Segmented Neutrophils % 68.3 %; White Blood Count 12.6 K/mcL (4.3-11.1)
[2021-02-08 06:46] LABS: BUN/Creatinine Ratio 28 (6-26); Blood Urea Nitrogen 20 mg/dL (6-20); Calcium 8.9 mg/dL (8.6-10.3); Carbon Dioxide 25 mEq/L (23-29); Chloride 104 mEq/L (98-107); Glucose 85 mg/dL (70-105); Osmolality,Calculated 288 (280-300); Potassium 3.5 mEq/L (3.5-5.1); Sodium 138 mEq/L (136-145); eGFR For African Americans > 60 (> 60); eGFR For Non-African Americans > 60 (> 60)
[2021-02-08] MEDS: Furosemide 40 MG TABLET PO SCH (07:43)
[2021-02-08] MEDS: FLUoxetine 20 MG CAPSULE PO SCH (07:43)
[2021-02-08] MEDS: GuaiFENesin/Codeine Oral Soln 5 ML UDC PO PRN ×2 (10:43→16:36)
[2021-02-09] MEDS: QUEtiapine Fumarate 25 MG TABLET PO SCH ×2 (00:18→20:53)
[2021-02-09] MEDS: GuaiFENesin/Codeine Oral Soln 5 ML UDC PO PRN ×3 (00:24→17:42)
[2021-02-09] MEDS: Benzonatate 100 MG CAPSULE PO PRN ×3 (00:42→21:05)
[2021-02-09] MEDS: *HR* LORazepam 2 MG/ML VIAL IVP PRN (00:43)
[2021-02-09 03:33] LABS: Hematocrit 38.9 % (35.3-44.9); Hemoglobin 13.4 g/dL (11.5-15.4); Mean Corpuscular HGB Conc 34.4 g/dL (31.6-35.5); Mean Corpuscular Hemoglobin 30.7 pg (28.0-33.3); Mean Corpuscular Volume 89.2 fL (83.0-100.0); Mean Platelet Volume 10.9 fL (9.4-12.4); Platelet Count 170 K/mcL (140-400); Red Blood Count 4.36 M/mcL (3.82-4.97); White Blood Count 13.1 K/mcL (4.3-11.1)
[2021-02-09 03:52] LABS: BUN/Creatinine Ratio 31 (6-26); Blood Urea Nitrogen 19 mg/dL (6-20); Calcium 8.9 mg/dL (8.6-10.3); Carbon Dioxide 25 mEq/L (23-29); Chloride 102 mEq/L (98-107); Glucose 124 mg/dL (70-105); Osmolality,Calculated 288 (280-300); Potassium 3.4 mEq/L (3.5-5.1); Sodium 137 mEq/L (136-145); eGFR For African Americans > 60 (> 60); eGFR For Non-African Americans > 60 (> 60)
[2021-02-09] MEDS: Ipratropium 1 PUFF INHALER IH SCH ×5 (04:01→20:44)
[2021-02-09] MEDS: *HR* Enoxaparin 40 MG/0.4 ML SYRINGE SQ SCH (06:12)
[2021-02-09] MEDS: FLUoxetine 20 MG CAPSULE PO SCH (08:26)
[2021-02-09] MEDS: Furosemide 40 MG TABLET PO SCH (08:26)
[2021-02-10] MEDS: GuaiFENesin/Codeine Oral Soln 5 ML UDC PO PRN ×2 (00:10→09:19)
[2021-02-10] MEDS: Ipratropium 1 PUFF INHALER IH SCH ×4 (00:13→12:27)
[2021-02-10] MEDS ORDERED: Ketorolac 15 MG/ML VIAL IVP ONE (02:30)
[2021-02-10] MEDS ORDERED: Menthol 1 EACH LOZENGE PO PRN (02:30)
[2021-02-10] MEDS: *HR* Enoxaparin 40 MG/0.4 ML SYRINGE SQ SCH (07:40)
[2021-02-10] MEDS ORDERED: dexAMETHasone 4 MG TABLET PO SCH (09:00)
[2021-02-10] MEDS: FLUoxetine 20 MG CAPSULE PO SCH (09:19)
[2021-02-10] MEDS: Benzonatate 100 MG CAPSULE PO PRN (09:19)
[2021-02-10 11:25] VITALS: BP 94/62; PULSE 90; TEMP 98.2
[2021-02-10 15:14] VITALS: O2SAT 97
== END 2021-02-10 16:25 | disposition home or self-care (01) | DRG 871 ==
LOC: EMEROOARM 22:24 → 2NENU 22:24 → SUATTDRO 01-26 10:14 → 3BNU 02-09 21:35
PROVIDERS: ADMIT Family Medicine; ATTEND Internal Medicine